=== PATIENT | female | born 1960 | race Caucasian/White ===

== ENCOUNTER 2016-05-31 16:47 | Emergency (ER) | payer OTHER ==
[2016-05-31 17:18] LABS: BASO % 0.5 % (0.0-1.0); EOS # 0.2 K/mm3 (0.0-0.50); EOS % 2.1 % (0.0-3.0); LARGE UNSTAINED CELL # 0.2 K/mm3 (0.0-0.4); LARGE UNSTAINED CELL % 2.2 % (0.0-4.0); LYMPH # 2.7 K/mm3 (1.5-4.5); LYMPH % 31.2 % (24.0-44.0); MEAN CORPUSCULAR HEMOGLOBIN 28.3 pg (27.0-33.0); MEAN CORPUSCULAR VOLUME 83.3 fl (80.0-96.0); MONO # 0.4 K/mm3 (0.0-0.8); MONO % 4.5 % (0.0-5.0); NEUTROPHILS # 5.1 K/mm3 (1.8-7.7); NEUTROPHILS % 59.5 % (36.0-66.0); PLATELET COUNT, AUTOMATED 440 k/mm3 (150-450); RED CELL DISTRIBUTION WIDTH 13.3 % (11.5-14.5); WHITE BLOOD COUNT 8.6 K/mm3 (4.0-10.0)
[2016-05-31] MEDS ORDERED: ALPRAZolam 0.25 MG TAB As Ordered ONE (17:33)
--- NOTE | 2016-05-31 17:41 | REP ---
Clinical: Chest pain . Comparison: 12/04/2014 . Findings: The mediastinum and cardiac silhouette are stable and within normal limits for portable technique. The lung balderas are clear without acute consolidation, effusion, or pneumothorax. Skeletal structures are intact. Impression: Normal portable chest x-ray Signed by Larry Olson MD 05/31/2016 05:32 P
[2016-05-31 17:44] LABS: ANION GAP 12 MEQ/L (8-16); BLOOD UREA NITROGEN 10 MG/DL (7-18); CALCIUM LEVEL 9.1 MG/DL (8.5-10.1); CARBON DIOXIDE LEVEL 24 MEQ/L (21-32); CHLORIDE LEVEL 106 MEQ/L (98-107); CREATININE FOR GFR 1.19 MG/DL (0.55-1.02); GLOMERULAR FILTRATION RATE 50.5 (>51); GLUCOSE, FASTING 155 MG/DL (70-105); POTASSIUM SERUM 3.6 MEQ/L (3.5-5.1); SODIUM LEVEL 142 MEQ/L (136-145)
--- NOTE | 2016-05-31 22:18 | EDDOCDS ---
Nurse's Notes [facility] Name: Sonia Warren Age: 55 yrs Sex: Female : 1960 Arrival Date: 05/31/2016 Time: 16:47 Bed OBSERVATION Private MD: MA Virgie [place] Diagnosis: Chest pain, unspecified Presentation: 05/31 16:53 Presenting complaint: Patient states: rapid heart rate then heart thumps then slows mk4 down , shaky flushed. Aspirin was not taken prior to arrival. Adult Sepsis Screening: The patient does not have new or worsening altered mentation. Patient's respiratory rate is less than 22. Systolic blood pressure is greater than 100. Patient has a qSOFA score of 0- Negative Sepsis Screen. Suicide/Homicide risk assessment- the patient denies having any suicidal and/or homicidal ideations and does not present with any other emotional, behavioral or mental health complaints. Status: Patient is not a director of community services or dependent. Transition of care: patient was not received from another setting of care. 16:53 Acuity: FAUSTINO Level 2 mk4 16:53 Method Of Arrival: Walkin/Carried/Asstd mk4 Triage Assessment: 18:58 The patient is triaged at the bedside. See Assessment in Nurses Notes section of ED pml record. 18:58 HIV screening NA for this visit Offered previously. Cardiovascular: Chest pain is pml described as mild, radiates Does not radiate. episodes are intermittent began 90 min prior to arrival. 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 valsartan 160 mg oral cap daily 2. potassium gluconate 595 mg (99 mg) oral TbER daily 3. acetaminophen 500 mg Oral cap as needed 4. aspirin 81 mg Oral tbef daily 5. metoprolol succinate 50 mg Tb24 once daily 6. amlodipine 10 mg oral tab 1 tab once daily 7. omeprazole 40 mg Oral cpDR 2 times per day - PMHx: Anxiety; Asthma; Cancer, Uterine; Myocardial infarction; Diverticulitis; - PSHx: Hysterectomy; Knee Arthroplasty, Left; Tubal ligation; Tonsillectomy; Cardiac stents; - The history from nurses notes was reviewed: and I agree with what is documented. - Social history: Smoking status: Patient states former smoker of tobacco. No barriers to communication noted, The patient speaks fluent Iraqi. - Family history: Not pertinent. - : The pt / caregiver states he / she is not on anticoagulants. Home medication list is obtained from the patient. - Hospitalizations: : No recent hospitalization is reported. - Exposure Risk Screening:: None identified. - Immunization history:: All immunizations up-to-date. - Social history:: the patient is a non-smoker, the patient does not drink alcohol. Screenin:09 Screening information is obtained from the patient. Fall risk: No risks identified. pml Assistance ADL's: requires no assistance with activities of daily living. Abuse/DV Screen: The patient / caregiver reports he/she is: not in a situation that causes fear, pain or injury. Nutritional screening: No deficits noted. Advance Directives: Currently, there is no health care proxy. home support is adequate. Assessment: 17:09 General: Appears in no apparent distress, Behavior is anxious, appropriate for age, pml cooperative. Pain: Location: chest Pain currently is 2 out of 10 on a pain scale. Quality of pain is described as pressure, Is intermittent episodic ongoing for about a month - started today approx 90 minutes ago. Neurological: Level of Consciousness is awake, alert, Oriented to person, place, time. Cardiovascular: Capillary refill < 3 seconds Rhythm is sinus rhythm No ectopy. Respiratory: Airway is patent Respiratory effort is even, unlabored, Reports pain with respiration. GI: Abdomen is non- distended obese. Derm: Skin is pink, warm & dry. 18:05 General: pt reports chest pain is resolved, reports her muscles feel sore when she pml takes a deep breath. resps easy and unlabored, skin p/w/d. sinus rhythm on monitor without ectopy. . 18:42 General: Appears in no apparent distress, Behavior is appropriate for age, cooperative. pml Pain: Denies pain. Neurological: Level of Consciousness is awake, alert, Oriented to person, place, time. Cardiovascular: Capillary refill < 3 seconds Rhythm is sinus rhythm No ectopy. Derm: Skin is pink, warm & dry. 19:39 General: Appears in no apparent distress, comfortable, Behavior is appropriate for age, jmb cooperative, Patient laying on stretcher, appears comfortable. Patient currently crocheting. NO voiced complaints at this time. . Pain: Denies pain. Neurological: Level of Consciousness is awake, alert, obeys commands, Oriented to person, place, time, Medical Delivery Technician are equal bilaterally Speech is normal, Facial symmetry appears normal, Facial symmetry: tongue is midline. Cardiovascular: Capillary refill < 3 seconds Heart tones present Pulses are all present. Rhythm is sinus rhythm No ectopy. Respiratory: Airway is patent Respiratory effort is even, unlabored, Respiratory pattern is regular, symmetrical. GI: Abdomen is obese, Bowel sounds present X 4 quads. Abd is soft X 4 quads. Derm: Skin is pink, warm & dry. Musculoskeletal: Range of motion intact in all extremities. 20:09 General: Appears in no apparent distress, comfortable, Behavior is appropriate for age, jmb cooperative. Neurological: Level of Consciousness is awake, alert, obeys commands, Oriented to person, place, time. Respiratory: Airway is patent Respiratory effort is even, unlabored, Respiratory pattern is regular, symmetrical. 21:15 General: Appears in no apparent distress, comfortable, Behavior is appropriate for age, jmb cooperative, Patient laying on stretcher crocheting. NO voiced complaints at this time. . Neurological: Level of Consciousness is awake, alert, obeys commands, Oriented to person, place, time. Respiratory: Airway is patent Respiratory effort is even, unlabored, Respiratory pattern is regular, symmetrical. 22:15 General: Patient instructed on discharge instructions. Patient asked if there were any b questions regarding discharge, patient stated no. IV discontinued per hospital policy. Patient signed discharge instructions. Patient discharged in stable condition. . Vital Signs: 16:48 BP 168 / 87; Pulse 137; Resp 18 S; Pulse Ox 100% on R/A; Weight 113.4 kg (R); Height 5 gr2 ft. 9 in. (175.26 cm) (R); Pain 6/10; 17:00 BP 175 / 84 (auto/); pml 17:01 Pulse 98 MON; Pulse Ox 100% ; pml 17:13 Temp 98.7(O); ls3 17:15 BP 172 / 88 (auto/); pml 17:16 Pulse 80 MON; Pulse Ox 97% ; pml 17:30 BP 159 / 76 (auto/); pml 17:31 Pulse 74 MON; Pulse Ox 98% ; pml 17:41 Pain 0/10; pml 17:44 BP 140 / 72 (auto/); pml 17:45 BP 136 / 74 (auto/); pml 17:45 Pulse 78 MON; Pulse Ox 95% ; pml 17:46 Pulse 74 MON; Pulse Ox 97% ; pml 18:00 BP 124 / 61 (auto/); pml 18:01 Pulse 66 MON; Pulse Ox 95% ; pml 18:15 BP 132 / 78 (auto/); pml 18:16 Pulse 64 MON; Pulse Ox 94% ; pml 18:30 BP 124 / 59 (auto/); pml 18:31 Pulse 60 MON; Pulse Ox 94% ; pml 22:08 BP 130 / 74 LA Sitting (auto/reg); Pulse 66 MON; Resp 18 S; Temp 98.2(TE); Pulse Ox 97% cln on R/A; Pain 0/10; 16:48 Body Mass Index 36.92 (113.40 kg, 175.26 cm) gr2 16:48 PATIENT NEEDS TEMP TO BE TAKEN gr2 Vitals: 16:48 Log In Time: May 31, 2016 at 16:48. RN notified that patient meets Red Flag gr2 criteria. ED Course: 16:48 Patient visited by Kwaku Amado. gr2 16:48 [facility] is Private Physician. gr2 16:48 Patient moved to Waiting gr2 16:50 Patient visited by Kwaku Amado. gr2 16:50 Patient moved to 15 mk4 16:50 Patient moved to Pre RCE gr2 16:52 Patient moved to 14 mk4 16:54 Triage Initiated mk4 17:01 EKG done. (by ED staff). Reviewed by Oseas Juárez MD. ct3 17:03 Patient visited by Brandy Mendez. dem1 17:03 Pt greeted and oriented to ED. Patient advised of names of staff involved in care, [facility] location of call [facility], wait times and NPO status. Patient has correct armband on for positive identification. Placed in gown. Bed in low position. Call light in reach. Side rails up X2. political science research assistant on. Pulse ox on. NIBP on. 17:09 Oseas Juárez MD is Attending Physician. pc 17:09 The patient / caregiver is instructed regarding the plan of care and ED course. pml 17:09 Inserted peripheral IV: 18gauge IV in right antecubital area and blood collected. pml Patient tolerated the procedure well. 17:10 Patient visited by Christen Delarosa RN. pml 17:14 Patient visited by Antonietta Montes PCA. ls3 17:20 Patient visited by Oseas Juárez MD. pc 17:33 [facility] Payment Agreement was scanned into [employer] and attached to record. jp5 18:06 Patient visited by Christen Delarosa RN. pml 18:21 portable chest Returned. EDMS 18:43 Patient visited by Christen Delarosa RN. pml 19:03 Patient visited by Rob Stark PCA. kb5 19:41 Patient visited by Paramjit Ji RN. jmb 20:09 Patient visited by Paramjit Ji RN. jmb 20:43 Attending Physician role handed off by Oseas Juárez MD cs11 20:43 Steve Montes DO is Attending Physician. cs11 20:43 Patient moved to OBSERVATION cs11 20:57 Patient visited by Guadalupe Ochoa PCA. cln 20:57 EKG done. (by ED staff). Reviewed by Steve Montes DO. cln 21:15 Patient visited by Paramjit Ji RN. jmb 21:56 Patient visited by Rob Stark PCA. kb5 22:08 Patient visited by Guadalupe Ochoa PCA. cln 22:15 Discontinued lock intact, bleeding controlled, pressure dressing applied, No jmb redness/swelling at site. No procedures done that require assistance. Administered Medications: 17:37 Drug: ALPRAZolam 0.5 mg [alprazolam 0.25 mg tablet (2 tabs)] Route: PO; pml 17:37 Drug: Nitrostat 0.4 mg [Nitrostat 0.4 mg sublingual tablet (1 tabs)] Route: Sublingual; pml 17:41 Follow up: Pain 0/10 Adult; Response: Pain is resolved pml Order Results: Lab Order: Basic Metabolic Profile; SPEC'M 05/31/16 17:02 Test: GLUCOSE, FASTING; Value: 155; Range: 70-105; Abnormal: Above high normal; Units: MG/DL; Status: F Test: BLOOD UREA NITROGEN; Value: 10; Range: 7-18; Units: MG/DL; Status: F Test: CREATININE FOR GFR; Value: 1.19; Range: 0.55-1.02; Abnormal: Above high normal; Units: MG/DL; Status: F Test: GLOMERULAR FILTRATION RATE; Value: 50.5; Range: >51; Abnormal: Below low normal; Status: F Test: SODIUM LEVEL; Value: 142; Range: 136-145; Units: MEQ/L; Status: F Test: POTASSIUM SERUM; Value: 3.6; Range: 3.5-5.1; Units: MEQ/L; Status: F Test: CHLORIDE LEVEL; Value: 106; Range: 98-107; Units: MEQ/L; Status: F Test: CARBON DIOXIDE LEVEL; Value: 24; Range: 21-32; Units: MEQ/L; Status: F Test: ANION GAP; Value: 12; Range: 8-16; Units: MEQ/L; Status: F Test: CALCIUM LEVEL; Value: 9.1; Range: 8.5-10.1; Units: MG/DL; Status: F Test Note: ; Units are mL/min/1.73 m2 Chronic Kidney Disease Staging per NKF: Stage I & II GFR >=60 Normal to Mildly Decreased Stage III GFR 30-59 Moderately Decreased Stage IV GFR 15-29 Severely Decreased Stage V GFR <15 Very Little GFR Left ESRD GFR <15 on [place] Lab Order: CBC with Diff; SPEC'M 05/31/16 17:02 Test: WHITE BLOOD COUNT; Value: 8.6; Range: 4.0-10.0; Units: K/mm3; Status: F Test: RED BLOOD COUNT; Value: 5.70; Range: 4.00-5.40; Abnormal: Above high normal; Units: M/mm3; Status: F Test: HEMOGLOBIN; Value: 16.1; Range: 12.0-16.0; Abnormal: Above high normal; Units: g/dl; Status: F Test: HEMATOCRIT; Value: 47.5; Range: 36.0-47.0; Abnormal: Above high normal; Units: %; Status: F Test: MEAN CORPUSCULAR VOLUME; Value: 83.3; Range: 80.0-96.0; Units: fl; Status: F Test: MEAN CORPUSCULAR HEMOGLOBIN; Value: 28.3; Range: 27.0-33.0; Units: pg; Status: F Test: MEAN CORPUSCULAR HGB CONC; Value: 34.0; Range: 32.0-36.5; Units: g/dl; Status: F Test: RED CELL DISTRIBUTION WIDTH; Value: 13.3; Range: 11.5-14.5; Units: %; Status: F Test: PLATELET COUNT, AUTOMATED; Value: 440; Range: 150-450; Units: k/mm3; Status: F Test: NEUTROPHILS %; Value: 59.5; Range: 36.0-66.0; Units: %; Status: F Test: LYMPH %; Value: 31.2; Range: 24.0-44.0; Units: %; Status: F Test: MONO %; Value: 4.5; Range: 0.0-5.0; Units: %; Status: F Test: EOS %; Value: 2.1; Range: 0.0-3.0; Units: %; Status: F Test: BASO %; Value: 0.5; Range: 0.0-1.0; Units: %; Status: F Test: LARGE UNSTAINED CELL %; Value: 2.2; Range: 0.0-4.0; Units: %; Status: F Test: NEUTROPHILS #; Value: 5.1; Range: 1.8-7.7; Units: K/mm3; Status: F Test: LYMPH #; Value: 2.7; Range: 1.5-4.5; Units: K/mm3; Status: F Test: MONO #; Value: 0.4; Range: 0.0-0.8; Units: K/mm3; Status: F Test: EOS #; Value: 0.2; Range: 0.0-0.50; Units: K/mm3; Status: F Test: BASO #; Value: 0.0; Range: 0.0-0.2; Units: K/mm3; Status: F Test: LARGE UNSTAINED CELL #; Value: 0.2; Range: 0.0-0.4; Units: K/mm3; Status: F Lab Order: Cardiac Injury Profile; SPEC'M 05/31/16 17:02 Test: CPK CREATINE PHOSPHOKINASE; Value: 46; Range: 26-192; Units: U/L; Status: F Test: CK-MB VALUE MASS; Value: 1.0; Range: 0.0-3.6; Units: NG/ML; Status: F Test: MB/CK RELATIVE INDEX; Value: 2.17; Range: < OR =4; Status: F Test Note: ; DIAGNOSIS CRITERIA MMB ng/ml Relative Index (RI) NON-AMI < or = 5 N/A HOLDER ZONE > 5 < or = 4 AMI > 5 > 4 Lab Order: Troponin; SPEC'M 05/31/16 17:02 Test: TROPONIN I; Value: < 0.02; Range: < 0.10; Units: NG/ML; Status: F Test Note: ; Troponin I Reference Interval for [employer] LOCI: 99th Percentile= 0.00-0.045 ng/ml Risk Stratification: <= 0.10 ng/ml Decreased Risk for Adverse Clinical Events. 0.10-1.50 ng/ml Increased Risk for Adverse Clinical Events. Evaluation of additional criterion and/or repeat testing in 2-6 hours is suggested to rule out myocardial damage. >= 1.50 ng/ml Indicative of Myocardial Injury. Lab Order: CARDIAC MARKER PANEL; SPEC'M 05/31/16 21:05 Test: CPK CREATINE PHOSPHOKINASE; Value: 42; Range: 26-192; Units: U/L; Status: F Test: CK-MB VALUE MASS; Value: 1.1; Range: 0.0-3.6; Units: NG/ML; Status: F Test: MB/CK RELATIVE INDEX; Value: 2.61; Range: < OR =4; Status: F Test: TROPONIN I; Value: < 0.02; Range: < 0.10; Units: NG/ML; Status: F Test Note: ; DIAGNOSIS CRITERIA MMB ng/ml Relative Index (RI) NON-AMI < or = 5 N/A HOLDER ZONE > 5 < or = 4 AMI > 5 > 4 Radiology Order: portable chest Test: portable chest REASON FOR EXAMINATION: Chest Pain; Clinical: Chest pain .; ; Comparison: 12/04/2014 .; ; Findings:; The mediastinum and cardiac silhouette are stable and within normal limits for; portable technique. The lung balderas are clear without acute consolidation,; effusion, or pneumothorax. Skeletal structures are intact.; ; Impression:; Normal portable chest x-ray; ; ; Signed by; Larry Olson MD 05/31/2016 05:32 P; Outcome: 22:02 Discharge ordered by Provider. cs11 22:15 Discharge Assessment: Patient awake, alert and oriented x 3. No cognitive and/or jmb functional deficits noted. Patient verbalized understanding of disposition instructions. Patient awake and alert. obeys commands, Oriented to person, place and time. Patient verbalized understanding of disposition instructions. Patient has no functional deficits. patient administered narcotics - no. The following High Risk Discharge criteria are identified: None. Discharged to home ambulatory. Condition: stable. Discharge instructions given to patient, Instructed on discharge instructions, follow up and referral plans. Demonstrated understanding of instructions, Pt was receptive of discharge instructions/ teaching. No special radiology studies were completed. Property sent home with patient. 22:17 Patient left the ED. chirag Signatures: Dispatcher [employer] EDMS Oseas Juárez MD MD pc Bancroft, Kristopher, CRACKER AND COOKIE MACHINE OPERATOR CRACKER AND COOKIE MACHINE OPERATOR kb5 Jane Pritchett, CRACKER AND COOKIE MACHINE OPERATOR CRACKER AND COOKIE MACHINE OPERATOR ct3 Christen Delarosa,RN RN Brandy Whatley dem1 Steve Montes, DO DO cs11 Kwaku Amado2 Paramjit Ji RN RN jmb King, Margaret, SUSY RN Yvan Nava jp5 Antonietta Montes, CRACKER AND COOKIE MACHINE OPERATOR CRACKER AND COOKIE MACHINE OPERATOR ls3 Guadalupe Ochoa, CRACKER AND COOKIE MACHINE OPERATOR CRACKER AND COOKIE MACHINE OPERATOR cln MTDD
--- NOTE | 2016-05-31 22:18 | EDDOCDS ---
Physician Documentation [facility] Name: Sonia Warren Age: 55 yrs Sex: Female : 1960 Arrival Date: 05/31/2016 Time: 16:47 Bed OBSERVATION Private MD: [facility] Disposition: 05/31/16 22:02 Discharged to Home/Self Care. Impression: Chest pain, unspecified. - Condition is Stable. - Medication Reconciliation, Local Pharmacy Hours form. - Follow up: Private Physician; When: Call to arrange an appointment; Reason: Recheck today's complaints. - Problem is new. - Symptoms have improved. HPI: 05/31 17:23 This 55 yrs old Female presents to ER via Walkin/Carried/Asstd with pc complaints of Chest Pain. 17:23 The history is obtained from the patient. Symptoms began For a month, she has been pc having episodes of what she has been attributing to anxiety, in which she has a fluttering in her chest, followed by chest pressure and feeling anxious, lasting 20-30 minutes. 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 She has CAD with a VT and stent, and decided to be sure today. She complains of chest pressure into her face, with a hot feeling and feeling flushed.. The patient's known risk factors for coronary artery disease include: a prior history of coronary artery disease. The patient has experienced similar episodes in the past, multiple times. The patient has been recently seen by their primary care provider, for a routine, regularly scheduled appointment. Historical: - Allergies: Codeine Sulfate; - Home Meds: 1. valsartan 160 mg oral cap daily 2. potassium gluconate 595 mg (99 mg) oral TbER daily 3. acetaminophen 500 mg Oral cap as needed 4. aspirin 81 mg Oral tbef daily 5. metoprolol succinate 50 mg Tb24 once daily 6. amlodipine 10 mg oral tab 1 tab once daily 7. omeprazole 40 mg Oral cpDR 2 times per day - PMHx: Anxiety; Asthma; Cancer, Uterine; Myocardial infarction; Diverticulitis; - PSHx: Hysterectomy; Knee Arthroplasty, Left; Tubal ligation; Tonsillectomy; Cardiac stents; - The history from nurses notes was reviewed: and I agree with what is documented. - Social history: Smoking status: Patient states former smoker of tobacco. No barriers to communication noted, The patient speaks fluent Tunisian. - Family history: Not pertinent. - : The pt / caregiver states he / she is not on anticoagulants. Home medication list is obtained from the patient. - Hospitalizations: : No recent hospitalization is reported. - Exposure Risk Screening:: None identified. - Immunization history:: All immunizations up-to-date. - Social history:: the patient is a non-smoker, the patient does not drink alcohol. 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 The cardiovascular, respiratory, pc gastrointestinal and neurological components are also addressed in the HPI. Exam: 17:23 General Appearance: alert, no acute distress, anxious. pc 17:23 ENT: ear, nose and throat normal, pharynx normal. 17:23 Neck: supple, non-tender, no masses are appreciated. 17:23 Respiratory: no respiratory distress, normal breath sounds. 17:23 Cardiovascular: regular pulse rate, regular heart rhythm, normal heart sounds, equal and full pulses bilaterally. 17:23 Abdomen: soft, non-tender, no organomegaly, normal bowel sounds. 17:23 Skin: skin color is normal, warm, dry. 17:23 Extremities: The extremities have a grossly normal appearance, are non-tender, without acute ROM abnormalities. 17:23 Neuro: alert, oriented to person, place and time, cranial nerves normal as tested, no motor deficits, no sensory deficits. 17:23 Psych: normal mood. Vital Signs: 16:48 BP 168 / 87; Pulse 137; Resp 18 S; Pulse Ox 100% on R/A; Weight 113.4 kg / 250 lbs (R); gr2 Height 5 ft. 9 in. (175.26 cm) (R); Pain 6/10; 17:00 BP 175 / 84 (auto/); pml 17:01 Pulse 98 MON; Pulse Ox 100% ; pml 17:13 Temp 98.7(O); ls3 17:15 BP 172 / 88 (auto/); pml 17:16 Pulse 80 MON; Pulse Ox 97% ; pml 17:30 BP 159 / 76 (auto/); pml 17:31 Pulse 74 MON; Pulse Ox 98% ; pml 17:41 Pain 0/10; pml 17:44 BP 140 / 72 (auto/); pml 17:45 BP 136 / 74 (auto/); pml 17:45 Pulse 78 MON; Pulse Ox 95% ; pml 17:46 Pulse 74 MON; Pulse Ox 97% ; pml 18:00 BP 124 / 61 (auto/); pml 18:01 Pulse 66 MON; Pulse Ox 95% ; pml 18:15 BP 132 / 78 (auto/); pml 18:16 Pulse 64 MON; Pulse Ox 94% ; pml 18:30 BP 124 / 59 (auto/); pml 18:31 Pulse 60 MON; Pulse Ox 94% ; pml 22:08 BP 130 / 74 LA Sitting (auto/reg); Pulse 66 MON; Resp 18 S; Temp 98.2(TE); Pulse Ox 97% cln on R/A; Pain 0/10; 16:48 Body Mass Index 36.92 (113.40 kg, 175.26 cm) gr2 16:48 PATIENT NEEDS TEMP TO BE TAKEN gr2 MDM: 16:55 ECG WITH READING ER PHYS+CARDIAG ordered. EDMS 17:11 Network Applications Specialist/Pulse Ox/q 30 min VS ordered. pc 17:11 IV Saline Lock ordered. pc 17:11 Rhythm Strip to chart ordered. pc 17:11 Test interpretation: EKG. pc 17:12 Basic Metabolic Profile Ordered. EDMS 17:12 CBC with Diff Ordered. EDMS 17:12 Cardiac Injury Profile Ordered. EDMS 17:12 Troponin Ordered. EDMS 17:13 portable chest Ordered. EDMS 17:21 ALPRAZolam Tablet 0.5 mg PO once ordered. pc 17:22 Nitrostat 0.4 mg Sublingual once ordered. pc 17:23 Differential diagnosis: acute myocardial infarction, anxiety, unstable angina. Plan: pc labs, EKG, CXR, meds. The patient not medicated with aspirin in the Emergency Department because the patient had taken aspirin within 24 hours prior to arrival in the Emergency Department. 17:33 [facility] Payment Agreement was scanned into [employer] and attached to record. jp5 17:33 Financial registration complete. jp5 17:36 Test interpretation: X-RAY - interpreted by Radiologist and personally reviewed, 1 view pc chest no acute disease. 17:47 Basic Metabolic Profile Reviewed. pc 17:47 CBC with Diff Reviewed. pc 17:47 Cardiac Injury Profile Reviewed. pc 17:47 Troponin Reviewed. pc 17:48 Redraw CIP &Troponin (put time in details section) ordered. pc 17:48 Repeat EKG (put time details section) ordered. pc 17:56 Redraw CIP &Troponin (put time in details section) complete. deg 17:56 Repeat EKG (put time details section) complete. deg 17:57 ECG WITH READING ER PHYS ordered. EDMS 17:57 CARDIAC MARKER PANEL Ordered. EDMS 21:59 ED course: asked to follow second set of cardiac markers. EKG morphology unchanged from cs11 1st - has sinus rate at 62. Second set cardiac marker panel negative.. 22:01 CARDIAC MARKER PANEL Reviewed. cs11 22:01 portable chest Reviewed. cs11 EC:11 Rate is 96 beats/min. Rhythm is regular, Normal Sinus Rhythm. QRS [place] is Normal. [place] pc interval is normal. QRS interval is normal. QT interval is normal. No Q waves. T waves are Normal. ST Segment is depressed in leads I, aVL, V3, V4, V5, V6, <1mm. Clinical impression: Normal Sinus Rhythm and Nonspecific ST-T changes. No change from previous ECG in November,. Administered Medications: 17:37 Drug: ALPRAZolam 0.5 mg [alprazolam 0.25 mg tablet (2 tabs)] Route: PO; pml 17:37 Drug: Nitrostat 0.4 mg [Nitrostat 0.4 mg sublingual tablet (1 tabs)] Route: Sublingual; pml 17:41 Follow up: Pain 0/10 Adult; Response: Pain is resolved pml Signatures: Dispatcher [employer] EDOseas Oconnor MD MD pc Murray, Denise, Radiologist Diagnostic Unit deg Christen Delarosa RN RN pml Schiff, Craig, DO cs11 Paramjit Ji RN RN jmb King, Margaret RN RN Yvan Nava jp5 The chart was reviewed and I authenticate all verbal orders and agree with the evaluation and treatment provided.Attachments: 17:33 [facility] Payment Agreement jp5 MTDD
--- NOTE | 2016-06-01 08:29 | ECGEPIP ---
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
--- NOTE | 2016-06-01 08:38 | ECGEPIP ---
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
--- NOTE | 2016-06-02 23:18 | EDDOCDS ---
Physician Documentation [facility] Name: Sonia Warren Age: 55 yrs Sex: Female : 1960 Arrival Date: 05/31/2016 Time: 16:47 Bed OBSERVATION Private MD: [facility] Disposition: 05/31/16 22:02 Discharged to Home/Self Care. Impression: Chest pain, unspecified. - Condition is Stable. - Medication Reconciliation, Local Pharmacy Hours form. - Follow up: Private Physician; When: Call to arrange an appointment; Reason: Recheck today's complaints. - Problem is new. - Symptoms have improved. HPI: 05/31 17:23 This 55 yrs old Female presents to ER via Walkin/Carried/Asstd with pc complaints of Chest Pain. 17:23 The history is obtained from the patient. Symptoms began For a month, she has been pc having episodes of what she has been attributing to anxiety, in which she has a fluttering in her chest, followed by chest pressure and feeling anxious, lasting 20-30 minutes. 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 She has CAD with a OH and stent, and decided to be sure today. She complains of chest pressure into her face, with a hot feeling and feeling flushed.. The patient's known risk factors for coronary artery disease include: a prior history of coronary artery disease. The patient has experienced similar episodes in the past, multiple times. The patient has been recently seen by their primary care provider, for a routine, regularly scheduled appointment. Historical: - Allergies: Codeine Sulfate; - Home Meds: 1. valsartan 160 mg oral cap daily 2. potassium gluconate 595 mg (99 mg) oral TbER daily 3. acetaminophen 500 mg Oral cap as needed 4. aspirin 81 mg Oral tbef daily 5. metoprolol succinate 50 mg Tb24 once daily 6. amlodipine 10 mg oral tab 1 tab once daily 7. omeprazole 40 mg Oral cpDR 2 times per day - PMHx: Anxiety; Asthma; Cancer, Uterine; Myocardial infarction; Diverticulitis; - PSHx: Hysterectomy; Knee Arthroplasty, Left; Tubal ligation; Tonsillectomy; Cardiac stents; - The history from nurses notes was reviewed: and I agree with what is documented. - Social history: Smoking status: Patient states former smoker of tobacco. No barriers to communication noted, The patient speaks fluent [place]. - Family history: Not pertinent. - : The pt / caregiver states he / she is not on anticoagulants. Home medication list is obtained from the patient. - Hospitalizations: : No recent hospitalization is reported. - Exposure Risk Screening:: None identified. - Immunization history:: All immunizations up-to-date. - Social history:: the patient is a non-smoker, the patient does not drink alcohol. 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 The cardiovascular, respiratory, pc gastrointestinal and neurological components are also addressed in the HPI. Exam: 17:23 General Appearance: alert, no acute distress, anxious. pc 17:23 ENT: ear, nose and throat normal, pharynx normal. 17:23 Neck: supple, non-tender, no masses are appreciated. 17:23 Respiratory: no respiratory distress, normal breath sounds. 17:23 Cardiovascular: regular pulse rate, regular heart rhythm, normal heart sounds, equal and full pulses bilaterally. 17:23 Abdomen: soft, non-tender, no organomegaly, normal bowel sounds. 17:23 Skin: skin color is normal, warm, dry. 17:23 Extremities: The extremities have a grossly normal appearance, are non-tender, without acute ROM abnormalities. 17:23 Neuro: alert, oriented to person, place and time, cranial nerves normal as tested, no motor deficits, no sensory deficits. 17:23 Psych: normal mood. Vital Signs: 16:48 BP 168 / 87; Pulse 137; Resp 18 S; Pulse Ox 100% on R/A; Weight 113.4 kg / 250 lbs (R); gr2 Height 5 ft. 9 in. (175.26 cm) (R); Pain 6/10; 17:00 BP 175 / 84 (auto/); pml 17:01 Pulse 98 MON; Pulse Ox 100% ; pml 17:13 Temp 98.7(O); ls3 17:15 BP 172 / 88 (auto/); pml 17:16 Pulse 80 MON; Pulse Ox 97% ; pml 17:30 BP 159 / 76 (auto/); pml 17:31 Pulse 74 MON; Pulse Ox 98% ; pml 17:41 Pain 0/10; pml 17:44 BP 140 / 72 (auto/); pml 17:45 BP 136 / 74 (auto/); pml 17:45 Pulse 78 MON; Pulse Ox 95% ; pml 17:46 Pulse 74 MON; Pulse Ox 97% ; pml 18:00 BP 124 / 61 (auto/); pml 18:01 Pulse 66 MON; Pulse Ox 95% ; pml 18:15 BP 132 / 78 (auto/); pml 18:16 Pulse 64 MON; Pulse Ox 94% ; pml 18:30 BP 124 / 59 (auto/); pml 18:31 Pulse 60 MON; Pulse Ox 94% ; pml 22:08 BP 130 / 74 LA Sitting (auto/reg); Pulse 66 MON; Resp 18 S; Temp 98.2(TE); Pulse Ox 97% cln on R/A; Pain 0/10; 16:48 Body Mass Index 36.92 (113.40 kg, 175.26 cm) gr2 16:48 PATIENT NEEDS TEMP TO BE TAKEN gr2 MDM: 16:55 ECG WITH READING ER PHYS+CARDIAG ordered. 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 pc 17:11 IV Saline Lock ordered. pc 17:11 Rhythm Strip to chart ordered. pc 17:11 Test interpretation: EKG. pc 17:12 Basic Metabolic Profile Ordered. EDMS 17:12 CBC with Diff Ordered. EDMS 17:12 Cardiac Injury Profile Ordered. EDMS 17:12 Troponin Ordered. EDMS 17:13 portable chest Ordered. EDMS 17:21 ALPRAZolam Tablet 0.5 mg PO once ordered. pc 17:22 Nitrostat 0.4 mg Sublingual once ordered. pc 17:23 Differential diagnosis: acute myocardial infarction, anxiety, unstable angina. Plan: pc labs, EKG, CXR, meds. The patient not medicated with aspirin in the Emergency Department because the patient had taken aspirin within 24 hours prior to arrival in the Emergency Department. 17:33 [facility] Payment Agreement was scanned into [employer] and attached to record. jp5 17:33 Financial registration complete. jp5 17:36 Test interpretation: X-RAY - interpreted by Radiologist and personally reviewed, 1 view pc chest no acute disease. 17:47 Basic Metabolic Profile Reviewed. pc 17:47 CBC with Diff Reviewed. pc 17:47 Cardiac Injury Profile Reviewed. pc 17:47 Troponin Reviewed. pc 17:48 Redraw CIP &Troponin (put time in details section) ordered. pc 17:48 Repeat EKG (put time details section) ordered. pc 17:56 Redraw CIP &Troponin (put time in details section) complete. deg 17:56 Repeat EKG (put time details section) complete. deg 17:57 ECG WITH READING ER PHYS ordered. EDMS 17:57 CARDIAC MARKER PANEL Ordered. EDMS 21:59 ED course: asked to follow second set of cardiac markers. EKG morphology unchanged from cs11 1st - has sinus rate at 62. Second set cardiac marker panel negative.. 22:01 CARDIAC MARKER PANEL Reviewed. cs11 22:01 portable chest Reviewed. [facility] 06/01 09:21 ECG/EKG was scanned into [employer] and attached to record. EC/12 17:11 Rate is 96 beats/min. Rhythm is regular, Normal Sinus Rhythm. QRS [place] is Normal. LA pc interval is normal. QRS interval is normal. QT interval is normal. No Q waves. T waves are Normal. ST Segment is depressed in leads I, aVL, V3, V4, V5, V6, <1mm. Clinical impression: Normal Sinus Rhythm and Nonspecific ST-T changes. No change from previous ECG in November,. Administered Medications: 17:37 Drug: ALPRAZolam 0.5 mg [alprazolam 0.25 mg tablet (2 tabs)] Route: PO; pml 17:37 Drug: Nitrostat 0.4 mg [Nitrostat 0.4 mg sublingual tablet (1 tabs)] Route: Sublingual; pml 17:41 Follow up: Pain 0/10 Adult; Response: Pain is resolved pml Signatures: Dispatcher [employer] EDMS Oseas Juárez MD MD pc Murray, Denise, Retail Sales Teammate Unit deg Merlyn Snell, Reg Reg gb Christen Delarosa,RN RN Steve Coffey DO DO cs11 Paramjit Ji RN RN jmb King, Margaret RN RN Yvan Nava jp5 The chart was reviewed and I authenticate all verbal orders and agree with the evaluation and treatment provided.Attachments: 17:33 [facility] Payment Agreement [email or web address] 06/01 09:21 ECG/EKG gb Chart Complete MTDD
--- NOTE | 2016-06-02 23:18 | EDDOCDS ---
Nurse's Notes [facility] Name: Sonia Warren Age: 55 yrs Sex: Female : 1960 Arrival Date: 05/31/2016 Time: 16:47 Bed OBSERVATION Private MD: AL Virgie Abingdon Diagnosis: Chest pain, unspecified Presentation: 05/31 16:53 Presenting complaint: Patient states: rapid heart rate then heart thumps then slows mk4 down , shaky flushed. Aspirin was not taken prior to arrival. Adult Sepsis Screening: The patient does not have new or worsening altered mentation. Patient's respiratory rate is less than 22. Systolic blood pressure is greater than 100. Patient has a qSOFA score of 0- Negative Sepsis Screen. Suicide/Homicide risk assessment- the patient denies having any suicidal and/or homicidal ideations and does not present with any other emotional, behavioral or mental health complaints. Status: Patient is not a field service technician or dependent. Transition of care: patient was not received from another setting of care. 16:53 Acuity: FAUSTINO Level 2 mk4 16:53 Method Of Arrival: Walkin/Carried/Asstd mk4 Triage Assessment: 18:58 The patient is triaged at the bedside. See Assessment in Nurses Notes section of ED pml record. 18:58 HIV screening NA for this visit Offered previously. Cardiovascular: Chest pain is pml described as mild, radiates Does not radiate. episodes are intermittent began 90 min prior to arrival. 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 valsartan 160 mg oral cap daily 2. potassium gluconate 595 mg (99 mg) oral TbER daily 3. acetaminophen 500 mg Oral cap as needed 4. aspirin 81 mg Oral tbef daily 5. metoprolol succinate 50 mg Tb24 once daily 6. amlodipine 10 mg oral tab 1 tab once daily 7. omeprazole 40 mg Oral cpDR 2 times per day - PMHx: Anxiety; Asthma; Cancer, Uterine; Myocardial infarction; Diverticulitis; - PSHx: Hysterectomy; Knee Arthroplasty, Left; Tubal ligation; Tonsillectomy; Cardiac stents; - The history from nurses notes was reviewed: and I agree with what is documented. - Social history: Smoking status: Patient states former smoker of tobacco. No barriers to communication noted, The patient speaks fluent [place]. - Family history: Not pertinent. - : The pt / caregiver states he / she is not on anticoagulants. Home medication list is obtained from the patient. - Hospitalizations: : No recent hospitalization is reported. - Exposure Risk Screening:: None identified. - Immunization history:: All immunizations up-to-date. - Social history:: the patient is a non-smoker, the patient does not drink alcohol. Screenin:09 Screening information is obtained from the patient. Fall risk: No risks identified. pml Assistance ADL's: requires no assistance with activities of daily living. Abuse/DV Screen: The patient / caregiver reports he/she is: not in a situation that causes fear, pain or injury. Nutritional screening: No deficits noted. Advance Directives: Currently, there is no health care proxy. home support is adequate. Assessment: 17:09 General: Appears in no apparent distress, Behavior is anxious, appropriate for age, pml cooperative. Pain: Location: chest Pain currently is 2 out of 10 on a pain scale. Quality of pain is described as pressure, Is intermittent episodic ongoing for about a month - started today approx 90 minutes ago. Neurological: Level of Consciousness is awake, alert, Oriented to person, place, time. Cardiovascular: Capillary refill < 3 seconds Rhythm is sinus rhythm No ectopy. Respiratory: Airway is patent Respiratory effort is even, unlabored, Reports pain with respiration. GI: Abdomen is non- distended obese. Derm: Skin is pink, warm & dry. 18:05 General: pt reports chest pain is resolved, reports her muscles feel sore when she pml takes a deep breath. resps easy and unlabored, skin p/w/d. sinus rhythm on monitor without ectopy. . 18:42 General: Appears in no apparent distress, Behavior is appropriate for age, cooperative. pml Pain: Denies pain. Neurological: Level of Consciousness is awake, alert, Oriented to person, place, time. Cardiovascular: Capillary refill < 3 seconds Rhythm is sinus rhythm No ectopy. Derm: Skin is pink, warm & dry. 19:39 General: Appears in no apparent distress, comfortable, Behavior is appropriate for age, jmb cooperative, Patient laying on stretcher, appears comfortable. Patient currently crocheting. NO voiced complaints at this time. . Pain: Denies pain. 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 Cardiovascular: Capillary refill < 3 seconds Heart tones present Pulses are all present. Rhythm is sinus rhythm No ectopy. Respiratory: Airway is patent Respiratory effort is even, unlabored, Respiratory pattern is regular, symmetrical. GI: Abdomen is obese, Bowel sounds present X 4 quads. Abd is soft X 4 quads. Derm: Skin is pink, warm & dry. Musculoskeletal: Range of motion intact in all extremities. 20:09 General: Appears in no apparent distress, comfortable, Behavior is appropriate for age, jmb cooperative. Neurological: Level of Consciousness is awake, alert, obeys commands, Oriented to person, place, time. Respiratory: Airway is patent Respiratory effort is even, unlabored, Respiratory pattern is regular, symmetrical. 21:15 General: Appears in no apparent distress, comfortable, Behavior is appropriate for age, jmb cooperative, Patient laying on stretcher crocheting. NO voiced complaints at this time. . Neurological: Level of Consciousness is awake, alert, obeys commands, Oriented to person, place, time. Respiratory: Airway is patent Respiratory effort is even, unlabored, Respiratory pattern is regular, symmetrical. 22:15 General: Patient instructed on discharge instructions. Patient asked if there were any b questions regarding discharge, patient stated no. IV discontinued per hospital policy. Patient signed discharge instructions. Patient discharged in stable condition. . Vital Signs: 16:48 BP 168 / 87; Pulse 137; Resp 18 S; Pulse Ox 100% on R/A; Weight 113.4 kg (R); Height 5 gr2 ft. 9 in. (175.26 cm) (R); Pain 6/10; 17:00 BP 175 / 84 (auto/); pml 17:01 Pulse 98 MON; Pulse Ox 100% ; pml 17:13 Temp 98.7(O); ls3 17:15 BP 172 / 88 (auto/); pml 17:16 Pulse 80 MON; Pulse Ox 97% ; pml 17:30 BP 159 / 76 (auto/); pml 17:31 Pulse 74 MON; Pulse Ox 98% ; pml 17:41 Pain 0/10; pml 17:44 BP 140 / 72 (auto/); pml 17:45 BP 136 / 74 (auto/); pml 17:45 Pulse 78 MON; Pulse Ox 95% ; pml 17:46 Pulse 74 MON; Pulse Ox 97% ; pml 18:00 BP 124 / 61 (auto/); pml 18:01 Pulse 66 MON; Pulse Ox 95% ; pml 18:15 BP 132 / 78 (auto/); pml 18:16 Pulse 64 MON; Pulse Ox 94% ; pml 18:30 BP 124 / 59 (auto/); pml 18:31 Pulse 60 MON; Pulse Ox 94% ; pml 22:08 BP 130 / 74 LA Sitting (auto/reg); Pulse 66 MON; Resp 18 S; Temp 98.2(TE); Pulse Ox 97% cln on R/A; Pain 0/10; 16:48 Body Mass Index 36.92 (113.40 kg, 175.26 cm) gr2 16:48 PATIENT NEEDS TEMP TO BE TAKEN gr2 Vitals: 16:48 Log In Time: May 31, 2016 at 16:48. RN notified that patient meets Red Flag gr2 criteria. ED Course: 16:48 Patient visited by Kwaku Amado. gr2 16:48 [facility] is Private Physician. gr2 16:48 Patient moved to Waiting gr2 16:50 Patient visited by Kwaku Amado. gr2 16:50 Patient moved to 15 mk4 16:50 Patient moved to Pre RCE gr2 16:52 Patient moved to 14 mk4 16:54 Triage Initiated mk4 17:01 EKG done. (by ED staff). Reviewed by Oseas Juárez MD. ct3 17:03 Patient visited by Brandy Mendez. dem1 17:03 Pt greeted and oriented to ED. Patient advised of names of staff involved in care, [facility] location of call [place], wait times and NPO status. Patient has correct armband on for positive identification. Placed in gown. Bed in low position. Call light in reach. Side rails up X2. environmental monitoring specialist on. Pulse ox on. NIBP on. 17:09 Oseas Juárez MD is Attending Physician. pc 17:09 The patient / caregiver is instructed regarding the plan of care and ED course. pml 17:09 Inserted peripheral IV: 18gauge IV in right antecubital area and blood collected. pml Patient tolerated the procedure well. 17:10 Patient visited by Christen Delarosa,SUSY. pml 17:14 Patient visited by Antonietta Montes PCA. ls3 17:20 Patient visited by Oseas Juárez MD. pc 17:33 [facility] Payment Agreement was scanned into [employer] and attached to record. jp5 18:06 Patient visited by Christen Delarosa RN. pml 18:21 portable chest Returned. EDMS 18:43 Patient visited by Christen Delarosa RN. pml 19:03 Patient visited by Rob Stark PCA. kb5 19:41 Patient visited by Paramjit Ji RN. jmb 20:09 Patient visited by Paramjit Ji RN. jmb 20:43 Attending Physician role handed off by Oseas Juárez MD cs11 20:43 Steve Montes DO is Attending Physician. cs11 20:43 Patient moved to OBSERVATION cs11 20:57 Patient visited by Guadalupe Ochoa PCA. cln 20:57 EKG done. (by ED staff). Reviewed by Steve Montes DO. cln 21:15 Patient visited by Paramjit Ji RN. jmb 21:56 Patient visited by Rob Stark PCA. kb5 22:08 Patient visited by Guadalupe Ochoa PCA. cln 22:15 Discontinued lock intact, bleeding controlled, pressure dressing applied, No jmb redness/swelling at site. No procedures done that require assistance. 06/01 09:06 EKG-ADULT Returned. EDMS 09:06 ECG WITH READING ER PHYS Returned. EDMS 09:21 ECG/EKG was scanned into [employer] and attached to record. gb Administered Medications: 05/31 17:37 Drug: ALPRAZolam 0.5 mg [alprazolam 0.25 mg tablet (2 tabs)] Route: PO; pml 17:37 Drug: Nitrostat 0.4 mg [Nitrostat 0.4 mg sublingual tablet (1 tabs)] Route: Sublingual; pml 17:41 Follow up: Pain 0/10 Adult; Response: Pain is resolved pml Order Results: Lab Order: Basic Metabolic Profile; SPEC'M 05/31/16 17:02 Test: GLUCOSE, FASTING; Value: 155; Range: 70-105; Abnormal: Above high normal; Units: MG/DL; Status: F Test: BLOOD UREA NITROGEN; Value: 10; Range: 7-18; Units: MG/DL; Status: F Test: CREATININE FOR GFR; Value: 1.19; Range: 0.55-1.02; Abnormal: Above high normal; Units: MG/DL; Status: F Test: GLOMERULAR FILTRATION RATE; Value: 50.5; Range: >51; Abnormal: Below low normal; Status: F Test: SODIUM LEVEL; Value: 142; Range: 136-145; Units: MEQ/L; Status: F Test: POTASSIUM SERUM; Value: 3.6; Range: 3.5-5.1; Units: MEQ/L; Status: F Test: CHLORIDE LEVEL; Value: 106; Range: 98-107; Units: MEQ/L; Status: F Test: CARBON DIOXIDE LEVEL; Value: 24; Range: 21-32; Units: MEQ/L; Status: F Test: ANION GAP; Value: 12; Range: 8-16; Units: MEQ/L; Status: F Test: CALCIUM LEVEL; Value: 9.1; Range: 8.5-10.1; Units: MG/DL; Status: F Test Note: ; Units are mL/min/1.73 m2 Chronic Kidney Disease Staging per NKF: Stage I & II GFR >=60 Normal to Mildly Decreased Stage III GFR 30-59 Moderately Decreased Stage IV GFR 15-29 Severely Decreased Stage V GFR <15 Very Little GFR Left ESRD GFR <15 on MANAGER UNIVERSITY Lab Order: CBC with Diff; SPEC'M 05/31/16 17:02 Test: WHITE BLOOD COUNT; Value: 8.6; Range: 4.0-10.0; Units: K/mm3; Status: F Test: RED BLOOD COUNT; Value: 5.70; Range: 4.00-5.40; Abnormal: Above high normal; Units: M/mm3; Status: F Test: HEMOGLOBIN; Value: 16.1; Range: 12.0-16.0; Abnormal: Above high normal; Units: g/dl; Status: F Test: HEMATOCRIT; Value: 47.5; Range: 36.0-47.0; Abnormal: Above high normal; Units: %; Status: F Test: MEAN CORPUSCULAR VOLUME; Value: 83.3; Range: 80.0-96.0; Units: fl; Status: F Test: MEAN CORPUSCULAR HEMOGLOBIN; Value: 28.3; Range: 27.0-33.0; Units: pg; Status: F Test: MEAN CORPUSCULAR HGB CONC; Value: 34.0; Range: 32.0-36.5; Units: g/dl; Status: F Test: RED CELL DISTRIBUTION WIDTH; Value: 13.3; Range: 11.5-14.5; Units: %; Status: F Test: PLATELET COUNT, AUTOMATED; Value: 440; Range: 150-450; Units: k/mm3; Status: F Test: NEUTROPHILS %; Value: 59.5; Range: 36.0-66.0; Units: %; Status: F Test: LYMPH %; Value: 31.2; Range: 24.0-44.0; Units: %; Status: F Test: MONO %; Value: 4.5; Range: 0.0-5.0; Units: %; Status: F Test: EOS %; Value: 2.1; Range: 0.0-3.0; Units: %; Status: F Test: BASO %; Value: 0.5; Range: 0.0-1.0; Units: %; Status: F Test: LARGE UNSTAINED CELL %; Value: 2.2; Range: 0.0-4.0; Units: %; Status: F Test: NEUTROPHILS #; Value: 5.1; Range: 1.8-7.7; Units: K/mm3; Status: F Test: LYMPH #; Value: 2.7; Range: 1.5-4.5; Units: K/mm3; Status: F Test: MONO #; Value: 0.4; Range: 0.0-0.8; Units: K/mm3; Status: F Test: EOS #; Value: 0.2; Range: 0.0-0.50; Units: K/mm3; Status: F Test: BASO #; Value: 0.0; Range: 0.0-0.2; Units: K/mm3; Status: F Test: LARGE UNSTAINED CELL #; Value: 0.2; Range: 0.0-0.4; Units: K/mm3; Status: F Lab Order: Cardiac Injury Profile; SPEC'M 05/31/16 17:02 Test: CPK CREATINE PHOSPHOKINASE; Value: 46; Range: 26-192; Units: U/L; Status: F Test: CK-MB VALUE MASS; Value: 1.0; Range: 0.0-3.6; Units: NG/ML; Status: F Test: MB/CK RELATIVE INDEX; Value: 2.17; Range: < OR =4; Status: F Test Note: ; DIAGNOSIS CRITERIA MMB ng/ml Relative Index (RI) NON-AMI < or = 5 N/A HOLDER ZONE > 5 < or = 4 AMI > 5 > 4 Lab Order: Troponin; SPEC'M 05/31/16 17:02 Test: TROPONIN I; Value: < 0.02; Range: < 0.10; Units: NG/ML; Status: F Test Note: ; Troponin I Reference Interval for [place] LOCI: 99th Percentile= 0.00-0.045 ng/ml Risk Stratification: <= 0.10 ng/ml Decreased Risk for Adverse Clinical Events. 0.10-1.50 ng/ml Increased Risk for Adverse Clinical Events. Evaluation of additional criterion and/or repeat testing in 2-6 hours is suggested to rule out myocardial damage. >= 1.50 ng/ml Indicative of Myocardial Injury. Lab Order: CARDIAC MARKER PANEL; SPEC'M 05/31/16 21:05 Test: CPK CREATINE PHOSPHOKINASE; Value: 42; Range: 26-192; Units: U/L; Status: F Test: CK-MB VALUE MASS; Value: 1.1; Range: 0.0-3.6; Units: NG/ML; Status: F Test: MB/CK RELATIVE INDEX; Value: 2.61; Range: < OR =4; Status: F Test: TROPONIN I; Value: < 0.02; Range: < 0.10; Units: NG/ML; Status: F Test Note: ; DIAGNOSIS CRITERIA MMB ng/ml Relative Index (RI) NON-AMI < or = 5 N/A HOLDER ZONE > 5 < or = 4 AMI > 5 > 4 Radiology Order: EKG-ADULT Test: EKG-ADULT REASON FOR EXAMINATION: Chest Pain; Stationary ECG Study; [facility] - ED; ; Test Date: 2016-05-31; Pat Name: [facility] Department:; Room: -; Gender: F 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; : 1960 Requested By: Oseas Juarez; Order Number: [id number] Reading : Oseas Juárez; Measurements; Intervals [place]; Rate: 96 P: 43; OR: 162 QRS: 35; QRSD: 70 T: 37; QT: 322; QTc: 409; Interpretive Statements; SINUS RHYTHM; POSIBLE LAE; NONSPECIFIC ST T-WAVE ABNORMALITY; ; Electronically Signed On 06-01-2016 8:29:01 EST by Oseas Juárez; Radiology Order: portable chest Test: portable chest REASON FOR EXAMINATION: Chest Pain; Clinical: Chest pain .; ; Comparison: 12/04/2014 .; ; Findings:; The mediastinum and cardiac silhouette are stable and within normal limits for; portable technique. The lung balderas are clear without acute consolidation,; effusion, or pneumothorax. Skeletal structures are intact.; ; Impression:; Normal portable chest x-ray; ; ; Signed by; Larry Olson MD 05/31/2016 05:32 P; Radiology Order: ECG WITH READING ER PHYS Test: ECG WITH READING ER PHYS REASON FOR EXAMINATION: CHEST PAIN; Stationary ECG Study; [facility] - ED; ; Test Date: 2016-05-31; Pat Name: [facility] Department:; Room: -; Gender: F Room Service Associate: george; : 1960 Requested By: Oseas Juarez; Order Number: [id number] Reading : Oseas Juárez; Measurements; Intervals [place]; Rate: 62 P: 39; OR: 148 QRS: 27; QRSD: 82 T: 30; QT: 415; QTc: 422; Interpretive Statements; SINUS RHYTHM; NONSPECIFIC T-WAVE ABNORMALITY; ; Electronically Signed On 06-01-2016 8:38:00 EST by Oseas Juárez; Outcome: 22:02 Discharge ordered by Provider. cs11 22:15 Discharge Assessment: Patient awake, alert and oriented x 3. No cognitive and/or jmb functional deficits noted. Patient verbalized understanding of disposition instructions. Patient awake and alert. obeys commands, Oriented to person, place and time. Patient verbalized understanding of disposition instructions. Patient has no functional deficits. patient administered narcotics - no. The following High Risk Discharge criteria are identified: None. Discharged to home ambulatory. Condition: stable. Discharge instructions given to patient, Instructed on discharge instructions, follow up and referral plans. Demonstrated understanding of instructions, Pt was receptive of discharge instructions/ teaching. No special radiology studies were completed. Property sent home with patient. 22:17 Patient left the ED. chirag Signatures: Dispatcher [employer] EDMS Oseas Juárez MD MD pc Merlyn Snell, Reg Reg gb Rob Stark, POSITION CLASSIFIER POSITION CLASSIFIER kb5 Pritchett, Jane, POSITION CLASSIFIER POSITION CLASSIFIER ct3 Christen Delarosa,RN RN Brandy Whatley dem1 Steve Montes DO DO cs11 Kwaku Amado gr2 Paramjit JiRN RN Kiera Coats RN RN [email or web address] Yvan Colon jp5 Antonietta Montes, POSITION CLASSIFIER POSITION CLASSIFIER ls3 Guadalupe Ochoa, POSITION CLASSIFIER POSITION CLASSIFIER cln Chart Complete [facility]
--- NOTE | 2016-06-02 23:18 | EDDOCDS ---
Physician Documentation [facility] Name: Sonia Warren Age: 55 yrs Sex: Female : 1960 Arrival Date: 05/31/2016 Time: 16:47 Bed OBSERVATION Private MD: [facility] Disposition: 05/31/16 22:02 Discharged to Home/Self Care. Impression: Chest pain, unspecified. - Condition is Stable. - Medication Reconciliation, Local Pharmacy Hours form. - Follow up: Private Physician; When: Call to arrange an appointment; Reason: Recheck today's complaints. - Problem is new. - Symptoms have improved. HPI: 05/31 17:23 This 55 yrs old Female presents to ER via Walkin/Carried/Asstd with pc complaints of Chest Pain. 17:23 The history is obtained from the patient. Symptoms began For a month, she has been pc having episodes of what she has been attributing to anxiety, in which she has a fluttering in her chest, followed by chest pressure and feeling anxious, lasting 20-30 minutes. Over the past few days, they have become more frequent and today, the symptoms have been there for 2 hours [employer] DEPARTMENT. She has CAD with a [place] and stent, and decided to be sure today. She complains of chest pressure into her face, with a hot feeling and feeling flushed.. The patient's known risk factors for coronary artery disease include: a prior history of coronary artery disease. The patient has experienced similar episodes in the past, multiple times. The patient has been recently seen by their primary care provider, for a routine, regularly scheduled appointment. Historical: - Allergies: Codeine Sulfate; - Home Meds: 1. valsartan 160 mg oral cap daily 2. potassium gluconate 595 mg (99 mg) oral TbER daily 3. acetaminophen 500 mg Oral cap as needed 4. aspirin 81 mg Oral tbef daily 5. metoprolol succinate 50 mg Tb24 once daily 6. amlodipine 10 mg oral tab 1 tab once daily 7. omeprazole 40 mg Oral cpDR 2 times per day - PMHx: Anxiety; Asthma; Cancer, Uterine; Myocardial infarction; Diverticulitis; - PSHx: Hysterectomy; Knee Arthroplasty, Left; Tubal ligation; Tonsillectomy; Cardiac stents; - The history from nurses notes was reviewed: and I agree with what is documented. - Social history: Smoking status: Patient states former smoker of tobacco. No barriers to communication noted, The patient speaks fluent Brazilian. - Family history: Not pertinent. - : The pt / caregiver states he / she is not on anticoagulants. Home medication list is obtained from the patient. - Hospitalizations: : No recent hospitalization is reported. - Exposure Risk Screening:: None identified. - Immunization history:: All immunizations up-to-date. - Social history:: the patient is a non-smoker, the patient does not drink alcohol. 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 The cardiovascular, respiratory, pc gastrointestinal and neurological components are also addressed in the HPI. Exam: 17:23 General Appearance: alert, no acute distress, anxious. pc 17:23 ENT: ear, nose and throat normal, pharynx normal. 17:23 Neck: supple, non-tender, no masses are appreciated. 17:23 Respiratory: no respiratory distress, normal breath sounds. 17:23 Cardiovascular: regular pulse rate, regular heart rhythm, normal heart sounds, equal and full pulses bilaterally. 17:23 Abdomen: soft, non-tender, no organomegaly, normal bowel sounds. 17:23 Skin: skin color is normal, warm, dry. 17:23 Extremities: The extremities have a grossly normal appearance, are non-tender, without acute ROM abnormalities. 17:23 Neuro: alert, oriented to person, place and time, cranial nerves normal as tested, no motor deficits, no sensory deficits. 17:23 Psych: normal mood. Vital Signs: 16:48 BP 168 / 87; Pulse 137; Resp 18 S; Pulse Ox 100% on R/A; Weight 113.4 kg / 250 lbs (R); gr2 Height 5 ft. 9 in. (175.26 cm) (R); Pain 6/10; 17:00 BP 175 / 84 (auto/); pml 17:01 Pulse 98 MON; Pulse Ox 100% ; pml 17:13 Temp 98.7(O); ls3 17:15 BP 172 / 88 (auto/); pml 17:16 Pulse 80 MON; Pulse Ox 97% ; pml 17:30 BP 159 / 76 (auto/); pml 17:31 Pulse 74 MON; Pulse Ox 98% ; pml 17:41 Pain 0/10; pml 17:44 BP 140 / 72 (auto/); pml 17:45 BP 136 / 74 (auto/); pml 17:45 Pulse 78 MON; Pulse Ox 95% ; pml 17:46 Pulse 74 MON; Pulse Ox 97% ; pml 18:00 BP 124 / 61 (auto/); pml 18:01 Pulse 66 MON; Pulse Ox 95% ; pml 18:15 BP 132 / 78 (auto/); pml 18:16 Pulse 64 MON; Pulse Ox 94% ; pml 18:30 BP 124 / 59 (auto/); pml 18:31 Pulse 60 MON; Pulse Ox 94% ; pml 22:08 BP 130 / 74 LA Sitting (auto/reg); Pulse 66 MON; Resp 18 S; Temp 98.2(TE); Pulse Ox 97% cln on R/A; Pain 0/10; 16:48 Body Mass Index 36.92 (113.40 kg, 175.26 cm) gr2 16:48 PATIENT NEEDS TEMP TO BE TAKEN gr2 MDM: 16:55 ECG WITH READING ER PHYS+CARDIAG ordered. 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 pc 17:11 IV Saline Lock ordered. pc 17:11 Rhythm Strip to chart ordered. pc 17:11 Test interpretation: EKG. pc 17:12 Basic Metabolic Profile Ordered. EDMS 17:12 CBC with Diff Ordered. EDMS 17:12 Cardiac Injury Profile Ordered. EDMS 17:12 Troponin Ordered. EDMS 17:13 portable chest Ordered. EDMS 17:21 ALPRAZolam Tablet 0.5 mg PO once ordered. pc 17:22 Nitrostat 0.4 mg Sublingual once ordered. pc 17:23 Differential diagnosis: acute myocardial infarction, anxiety, unstable angina. Plan: pc labs, EKG, CXR, meds. The patient not medicated with aspirin in the Emergency Department because the patient had taken aspirin within 24 hours prior to arrival in the Emergency Department. 17:33 [facility] Payment Agreement was scanned into [employer] and attached to record. jp5 17:33 Financial registration complete. jp5 17:36 Test interpretation: X-RAY - interpreted by Radiologist and personally reviewed, 1 view pc chest no acute disease. 17:47 Basic Metabolic Profile Reviewed. pc 17:47 CBC with Diff Reviewed. pc 17:47 Cardiac Injury Profile Reviewed. pc 17:47 Troponin Reviewed. pc 17:48 Redraw CIP &Troponin (put time in details section) ordered. pc 17:48 Repeat EKG (put time details section) ordered. pc 17:56 Redraw CIP &Troponin (put time in details section) complete. deg 17:56 Repeat EKG (put time details section) complete. deg 17:57 ECG WITH READING ER PHYS ordered. EDMS 17:57 CARDIAC MARKER PANEL Ordered. EDMS 21:59 ED course: asked to follow second set of cardiac markers. EKG morphology unchanged from cs11 1st - has sinus rate at 62. Second set cardiac marker panel negative.. 22:01 CARDIAC MARKER PANEL Reviewed. cs11 22:01 portable chest Reviewed. [facility] 06/01 09:21 ECG/EKG was scanned into [employer] and attached to record. EC/12 17:11 Rate is 96 beats/min. Rhythm is regular, Normal Sinus Rhythm. QRS [place] is Normal. NE pc interval is normal. QRS interval is normal. QT interval is normal. No Q waves. T waves are Normal. ST Segment is depressed in leads I, aVL, V3, V4, V5, V6, <1mm. Clinical impression: Normal Sinus Rhythm and Nonspecific ST-T changes. No change from previous ECG in November,. Administered Medications: 17:37 Drug: ALPRAZolam 0.5 mg [alprazolam 0.25 mg tablet (2 tabs)] Route: PO; pml 17:37 Drug: Nitrostat 0.4 mg [Nitrostat 0.4 mg sublingual tablet (1 tabs)] Route: Sublingual; pml 17:41 Follow up: Pain 0/10 Adult; Response: Pain is resolved pml Signatures: Dispatcher [employer] EDMS Oseas Juárez MD MD pc Murray, Denise, Network Applications Specialist Unit deg Merlyn Snell, Reg Reg gb Christen Delarosa,RN RN tSeve Coffey DO DO cs11 Paramjit Ji RN RN jmb King, Margaret RN RN Yvan Nava jp5 The chart was reviewed and I authenticate all verbal orders and agree with the evaluation and treatment provided.Attachments: 17:33 [facility] Payment Agreement jp5 06/01 09:21 ECG/EKG gb Chart Complete MTDD
== END 2016-05-31 22:17 | disposition home or self-care (01) ==
LOC: M ED 16:47
DX: R07.9 Chest pain, unspecified (principal); J45.909 Unspecified asthma, uncomplicated; F41.9 Anxiety disorder, unspecified; I25.2 Old myocardial infarction; Z87.19 Personal history of other diseases of the digestive system; Z85.42 Personal history of malignant neoplasm of other parts of uterus; Z79.899 Other long term (current) drug therapy; Z79.82 Long term (current) use of aspirin; Z88.2 Allergy status to sulfonamides; Z88.5 Allergy status to narcotic agent

== ENCOUNTER → 2018-03-19 | Outpatient (CLI) | payer OTHER | LOC: M RAD 08:12 | DX: Z12.31 Encounter for screening mammogram for malignant neoplasm of breast (principal) | CPT/HCPCS: 77067 ==

== ENCOUNTER 2019-05-13 10:17 | Emergency (ER) | payer OTHER ==
[~2019-05-13] VITALS: Ht 175.3 cm; Wt 123.6 kg
[2019-05-13 10:42] LABS: BASO % 0.4 % (0.0-1.0); EOS # 0.2 10^3/uL (0.0-0.5); EOS % 1.7 % (0.0-3.0); HEMATOCRIT 46.7 % (36.0-47.0); HEMOGLOBIN 14.8 g/dl (12.0-15.5); LYMPH # 2.3 10^3/uL (1.5-5.0); MEAN CORPUSCULAR HEMOGLOBIN 28.2 pg (27.0-33.0); MEAN CORPUSCULAR HGB CONC 31.7 g/dl (32.0-36.5); MEAN CORPUSCULAR VOLUME 89.1 fl (80.0-96.0); MONO # 0.6 10^3/uL (0.0-0.8); MONO % 7.2 % (0.0-5.0); NEUTROPHILS # 5.7 10^3/uL (1.5-8.5); PLATELET COUNT, AUTOMATED 315 10^3/uL (150-450); RED BLOOD COUNT 5.24 10^6/uL (4.00-5.40); WHITE BLOOD COUNT 8.9 10^3/uL (4.0-10.0)
[2019-05-13] MEDS ORDERED: MECLIZINE 25 MG TABLET PO ONE (10:45)
[2019-05-13] MEDS ORDERED: FAMO40TA3 PO (10:46)
[2019-05-13] MEDS ORDERED: VALS1TAB68 PO (10:46)
[2019-05-13] MEDS ORDERED: PROAAER10 INH (10:46)
[2019-05-13] MEDS ORDERED: AMLO10TA5 PO (10:46)
[2019-05-13] MEDS ORDERED: METO1TAB7 PO (10:46)
[2019-05-13] MEDS ORDERED: OMEP-221 PO (10:46)
[2019-05-13] MEDS ORDERED: D 202000 PO (10:46)
[2019-05-13] MEDS ORDERED: ASPI81TA85 PO (10:46)
[2019-05-13] MEDS ORDERED: VENL25TA2 PO (10:46)
[2019-05-13] MEDS ORDERED: FLON1SPR NARES (10:46)
--- NOTE | 2019-05-13 10:50 | REP ---
Clinical: Chest pain . Comparison: 05/31/2016 . Findings: The mediastinum and cardiac silhouette are stable and within normal limits for portable technique. The lung balderas are clear without acute consolidation, effusion, or pneumothorax. Skeletal structures are intact. Impression: No acute cardiopulmonary process appreciated. Electronically Signed by Larry Olson MD 05/13/2019 10:41 A
[2019-05-13] MEDS ORDERED: ISOVUE-370 76% 100ML VIAL (Q9967) As Ordered ONE (10:53)
[2019-05-13 10:57] LABS: INR 0.98; PARTIAL THROMBOPLASTIN TIME 26.1 SECONDS (25.0-38.4); PROTHROMBIN TIME 12.7 SECONDS (11.8-14.0)
--- NOTE | 2019-05-13 11:18 | REP ---
Clinical: Acute chest pain. Technique: Axial contrast enhanced images from the thoracic inlet to the upper abdomen using 75 ml Isovue 370 intravenous contrast material with coronal and sagittal re-formations. Findings: Satisfactory enhancement of the pulmonary vasculature is achieved and no filling defects are identified to suggest pulmonary embolus. Thoracic aorta is normal caliber without aneurysm or dissection. No cardiomegaly or pericardial effusion. Evidence of prior coronary artery stenting. Bilateral lung balderas are well aerated and clear without acute pulmonary parenchymal consolidation or atelectasis. No nodule or mass lesion. No pleural effusion/reaction. No pneumothorax. No adenopathy. Impression: No evidence for pulmonary embolus. No acute pleuroparenchymal or mediastinal process. Electronically Signed by Larry Olson MD 05/13/2019 11:10 A
[2019-05-13 11:34] LABS: ALBUMIN 3.6 GM/DL (3.2-5.2); ALT/SGPT 21 U/L (12-78); BILIRUBIN,DIRECT 0.1 MG/DL (0.0-0.2); BILIRUBIN,TOTAL 0.3 MG/DL (0.2-1.0); CK-MB VALUE MASS 3.2 NG/ML (<3.6); CPK CREATINE PHOSPHOKINASE 90 U/L (26-192); LIPASE 89 U/L (73-393); MB/CK RELATIVE INDEX 3.56 (< OR =4); NT-PRO BNP 190 PG/ML (<125); TOTAL PROTEIN 6.7 GM/DL (6.4-8.2); TROPONIN I < 0.02 NG/ML (< 0.10)
--- NOTE | 2019-05-13 11:43 | ECGEPIP ---
[facility] - ED Test Date: 2019-05-13 Pat Name: QUENTIN ROCK Department: Room: - Gender: Female [employer] Member: : 1960 Requested By: Rosi Bowers Order Number: [id number] Reading MD: Bill Bergeron Measurements Intervals [place] Rate: 61 P: 13 SD: 149 QRS: 25 QRSD: 72 T: 22 QT: 387 QTc: 392 Interpretive Statements SINUS RHYTHM Nonspecific ST-T wave abnormalities Similar to tracing done 05-31-16 Electronically Signed on 05-13-2019 11:43:16 EST by Bill Bergeron
[2019-05-13 14:30] LABS: CK-MB VALUE MASS 2.7 NG/ML (<3.6); CPK CREATINE PHOSPHOKINASE 99 U/L (26-192); MB/CK RELATIVE INDEX 2.73 (< OR =4); TROPONIN I < 0.02 NG/ML (< 0.10)
[2019-05-13] MEDS ORDERED: NS 1,000 ML IV ONE (14:30)
[2019-05-13 15:15] VITALS: BP 175/76
--- NOTE | 2019-05-13 19:43 | ECGEPIP ---
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
== END 2019-05-13 15:18 | disposition short-term general hospital (02) ==
LOC: M ED 10:17 → EDBD 10:17 → M ED 15:18
DX: I24.9 Acute ischemic heart disease, unspecified (principal); I48.92 Unspecified atrial flutter; F33.9 Major depressive disorder, recurrent, unspecified; F41.9 Anxiety disorder, unspecified; K21.9 Gastro-esophageal reflux disease without esophagitis; Z79.899 Other long term (current) drug therapy; Z79.82 Long term (current) use of aspirin; Z88.5 Allergy status to narcotic agent; Z87.891 Personal history of nicotine dependence; Z95.5 Presence of coronary angioplasty implant and graft
CPT/HCPCS: 36415; 71045; 71275; 80047; 80076; 82550; 82553; 83690; 83880; 84439; 84443; 84484; 85025; 85610; 85730; 87040; 87486; 87581; 87633; 87798; 93005; 93041; 94760; 99291; Q9967

== ENCOUNTER → 2019-07-07 | Outpatient (CLI) | payer OTHER ==
[~2019-07-07] MED LIST: AMLO10TA5 PO; ASPI81TA85 PO; D 202000 PO; FAMO40TA3 PO; FLON1SPR NARES; METO1TAB7 PO; OMEP-221 PO; PROAAER10 INH; VALS1TAB68 PO; VENL25TA14 PO
--- NOTE | 2019-07-07 09:29 | REPMRS ---
Patient History The patient states she has not had a clinical breast exam in over a year. Patient has history of uterine cancer at age 38. Family history of colorectal cancer at age 70 in paternal grandfather, pancreatic cancer at age 71 in mother. Digital Woman Screen Mammo: July 07, 2019 - Exam #: [id number] Bilateral CC and MLO view(s) were taken. Technologist: Aislinn Simon, Technologist Prior study comparison: March 19, 2018, bilateral digital mammo screening bilat, performed at [facility]. FINDINGS: There are scattered fibroglandular densities. There has been no change in the appearance of the mammogram from the prior studies. There is a mild amount of scattered fibroglandular density which is fairly symmetric. There is no interval development of dominant mass, architectural distortion, or grouped microcalcification suggestive of malignancy. 3-D tomosynthesis shows no additional findings. Assessment: BI-RADS/ACR category 1 mammogram. Negative Mammogram. Recommendation Routine screening mammogram of both breasts in 1 year (for women over age 40). This patient's Lifetime Breast Cancer Risk is estimated at 7.6 %. This mammogram was interpreted with the aid of an FDA-approved computer-aided dectection system. Electronically Signed By: Kermit Reeves MD 07/07/19 0928
== END ==
LOC: M WHC 08:04
PROVIDERS: ATTEND Physician Assistant Medical
DX: Z12.31 Encounter for screening mammogram for malignant neoplasm of breast (principal)

== ENCOUNTER 2023-08-17 14:24 | Emergency (ER) | payer OTHER ==
[~2023-08-17] VITALS: Ht 172.7 cm; Wt 119.1 kg
[~2023-08-17 14:24] MED LIST changes: -AMLO10TA5 PO; +AMLO1TAB25 PO; -ASPI81TA85 PO; +ASPI81TA86 PO; -OMEP-221 PO; +OMEP40CA5 PO; -VENL25TA14 PO; +VENL25TA28 PO
[2023-08-17 14:45] VITALS: BP 115/71
[2023-08-17] MEDS: NITROGLYCERIN 2% OINT 1 GM *U/D* PKT TOP ONE (14:45)
[2023-08-17 15:10] LABS: VENOUS BASE EXCESS 0.8 (-2.0-2.0); VENOUS HCO3 26.4 MMOL/L (23.0-27.0); VENOUS O2 SATURATION 75.6 % (60.0-80.0); VENOUS PARTIAL PRESSURE CO2 45.7 mmHg (38.0-50.0); VENOUS PARTIAL PRESSURE O2 36.8 mmHg (30.0-50.0); VENOUS PH 7.379 UNITS (7.330-7.430); VENOUS STANDARD HCO3 24.6 MMOL/L; VENOUS TOTAL CO2 27.8 MMOL/L (24.0-28.0)
[2023-08-17 15:23] LABS: HEMATOCRIT 41.4 % (36.0-47.0); HEMOGLOBIN 14.1 g/dl (12.0-15.5); MEAN CORPUSCULAR VOLUME 87.3 fl (80.0-96.0); RED BLOOD COUNT 4.74 10^6/uL (4.00-5.40); WHITE BLOOD COUNT 10.2 10^3/uL (4.0-10.0)
[2023-08-17 15:24] LABS: BASO % 0.6 % (0.0-1.0); EOS % 2.2 % (0.0-3.0); LYMPH % 28.4 % (24.0-44.0); MEAN CORPUSCULAR HEMOGLOBIN 29.7 pg (27.0-33.0); MEAN CORPUSCULAR HGB CONC 34.1 g/dl (32.0-36.5); MONO % 6.6 % (2.0-8.0); NEUTROPHILS % 61.6 % (36.0-66.0); PLATELET COUNT, AUTOMATED 357 10^3/uL (150-450)
[2023-08-17 15:25] LABS: BASO # 0.1 10^3/uL (0.0-0.2); EOS # 0.2 10^3/uL (0.0-0.5); LYMPH # 2.9 10^3/uL (1.5-5.0); MONO # 0.7 10^3/uL (0.0-0.8); NEUTROPHILS # 6.3 10^3/uL (1.5-8.5)
[2023-08-17 15:38] LABS: D-DIMER QUANT 0.34 ug/mL (<0.5); INR 0.99; PARTIAL THROMBOPLASTIN TIME 26.8 SECONDS (24.8-34.2); PROTHROMBIN TIME 12.8 SECONDS (12.5-14.5)
[2023-08-17 15:40] LABS: CK-MB VALUE MASS < 1.0 NG/ML (<3.6); LIPASE 92 U/L (12-53)
[2023-08-17 15:42] LABS: ALBUMIN 3.4 G/DL (3.2-5.2); ALKALINE PHOSPHATASE 81 U/L (46-116); ALT/SGPT 33 U/L (7.0-40); AST/SGOT 14 U/L (<34); BILIRUBIN,DIRECT 0.1 MG/DL (<0.4); BILIRUBIN,TOTAL 0.3 MG/DL (0.3-1.2); BLOOD UREA NITROGEN 22 MG/DL (9-23); CALCIUM LEVEL 8.8 MG/DL (8.3-10.6); CARBON DIOXIDE LEVEL 29 MMOL/L (20-31); CHLORIDE LEVEL 107 MMOL/L (98-107); CPK CREATINE PHOSPHOKINASE 52 U/L (34-145); CREATININE FOR GFR 1.33 MG/DL (0.55-1.30); GLOMERULAR FILTRATION RATE 43.2 (>45); GLUCOSE, FASTING 93 MG/DL (74-106); MB/CK RELATIVE INDEX 1.92 (< OR =4); SODIUM LEVEL 139 MMOL/L (136-145); TOTAL PROTEIN 5.9 G/DL (5.7-8.2)
[2023-08-17 15:44] LABS: FREE T4 0.99 NG/DL (0.89-1.76); THYROID STIMULATING HORMONE 1.911 uIU/ML (0.55-4.78)
[2023-08-17 16:35] LABS: CK-MB VALUE MASS < 1.0 NG/ML (<3.6)
[2023-08-17 16:36] LABS: CPK CREATINE PHOSPHOKINASE 65 U/L (34-145); MB/CK RELATIVE INDEX 1.53 (< OR =4)
[2023-08-17 17:12] VITALS: BP 125/71; TEMP 98; O2SAT 98
== END 2023-08-17 17:14 | disposition home or self-care (01) ==
LOC: EDBD 14:24 → M ED 14:24
DX: I20.89 Other forms of angina pectoris (principal); I10 Essential (primary) hypertension; F17.210 Nicotine dependence, cigarettes, uncomplicated; Z88.8 Allergy status to other drugs, medicaments and biological substances; Z79.899 Other long term (current) drug therapy